=== PATIENT | male | born 1935 | race Caucasian/White ===

== ENCOUNTER 2022-01-18 11:59 | Emergency (ER) | payer MEDICARE, OTHER ==
[2022-01-18 12:59] LABS: BASOPHIL 0.4 % (0-2); EOSINOPHIL 1.4 % (0-7); HCT 31.4 % (42.0-52.0); HGB 9.8 g/dl (13.2-18.0); LYMPHOCYTE 8.2 % (15-48); MCH 26.8 pg (25.0-31.0); MCHC 31.2 g/dL (32.0-36.0); MCV 85.8 fL (78.0-100.0); MONOCYTE 7.1 % (0-12); MPV 9.8 fL (6.0-9.5); NEUTROPHIL 82.4 % (41-80); NRBC 0; PLT 271 K/uL (150-400); RBC 3.66 M/uL (4.70-6.00); RDW 15.3 % (11.5-14.0); WBC 9.8 K/uL (4.0-10.5)
[2022-01-18 13:03] LABS: INR 2.91 (0.9-1.2); PROTHROMBIN TIME 29.3 SECONDS (11.9-13.9)
[2022-01-18 13:15] LABS: ALBUMIN 3.4 g/dL (3.4-5.0); BILIRUBIN - TOTAL 1.4 mg/dL (0.2-1.0); BUN/CREAT RATIO (CALC) 20.4 RATIO; CREATININE 1.13 mg/dL (0.67-1.17); GLOBULIN (CALCULATION) 3.4 g/dL; TOTAL PROTEIN 6.8 g/dL (6.4-8.2)
[2022-01-18 13:20] LABS: CKMB 1.6 ng/mL (0.0-3.6)
[2022-01-18 13:30] LABS: BILIRUBIN NEGATIVE (NEGATIVE); BLOOD NEGATIVE Ery/uL (NEGATIVE); CLARITY CLEAR (CLEAR); COLOR YELLOW (YELLOW); GLUCOSE (U) NORMAL (NORMAL); LEUKOCYTES NEGATIVE Leu/uL (NEGATIVE); NITRITE NEGATIVE (NEGATIVE); PROTEIN TRACE (LOW) mg/dL (NEGATIVE)
[2022-01-18 13:35] LABS: LACTIC ACID 1.6 mmol/L (0.4-1.9)
== END 2022-01-18 20:45 | disposition other institution (70) ==
LOC: FER 11:59
PROVIDERS: Emergency Medicine
DX: J44.0 Chronic obstructive pulmonary disease with (acute) lower respiratory infection (principal); J18.9 Pneumonia, unspecified organism; I11.0 Hypertensive heart disease with heart failure; I50.9 Heart failure, unspecified; Z20.822 Contact with and (suspected) exposure to COVID-19
CPT/HCPCS: 36415; 36600; 71046; 80053; 81003; 82553; 82803; 83605; 83880; 84145; 84484; 85025; 85610; 87040; 93005; 94640; J1940; J2543; U0002